=== PATIENT | female | born 1935 | race Caucasian/White ===

== ENCOUNTER 2021-05-21 08:29 | Emergency (ER) | payer MEDICARE, SELFPAY ==
--- NOTE | 2021-05-21 | ECG_ITS ---
Test Reason : chest wall pain Blood Pressure : / mmHG Vent. Rate : 065 BPM Atrial Rate : 065 BPM P-R Int : 136 ms QRS Dur : 090 ms QT Int : 400 ms P-R-T Axes : 000 -53 037 degrees QTc Int : 416 ms Sinus rhythm with Premature supraventricular complexes Left anterior fascicular block RSR' or QR pattern in V1 suggests right ventricular conduction delay Abnormal ECG No previous ECGs available Referred By: Generic ED Physician Electronically Signed By:JAMARI ALLEN MD
--- NOTE | ~2021-05-21 | CT_ITS ---
EXAMINATION: CTA CHEST CT ABDOMEN AND PELVIS WITH CONTRAST CLINICAL INFORMATION: Chest pain with SOB. Right lower quadrant pain. COMPARISON: None TECHNIQUE: 5 mm thin axial and reformatted 3 mm thin sagittal coronal images of chest were obtained following rapid IV 100 mL of Omnipaque 350. Subsequently 5 mm thin axial and 3 mm thin coronal and sagittal images of abdomen and pelvis were obtained with attention to subdiaphragmatic pleura. DLP: 977.9 mGy-cm FINDINGS: CHEST: Lungs: Both lungs are fairly well-expanded without acute pneumonic process. There is patchy bibasilar lateral posterior segment upper lobe dependent atelectasis 7 mm dependent bibasilar lower lobe atelectasis. There is a calcified right upper lobe 2 mm nodule on axial image 139/10, 1.2 cm right middle lobe nodule axial image 237/10. There is adjacent to the nodule right middle lobe axial image 30/9. Adjacent nodule in the right middle lobe There is patchy reticular nodular changes right upper lobe likely developing infiltrate. There is a punctate 2 mm calcified nodule right lower lobe superior segment 163/10 Mediastinum: There is good opacification of pulmonary artery and its branches without any intraluminal filling defect. There is mild tortuosity of pulmonary arteries questioning pulmonary venous hypertension. Heart size is normal. No mediastinal lymph nodes or mass seen. Central trachea and the bronchi are widely patent. Pleura: There is no pleural thickening, effusion or calcification. Axilla: There is no abnormal axillary lymph nodes or mass. The chest wall appears unremarkable. ABDOMEN AND PELVIS: Liver, Gallbladder and Intrahepatic Ducts: There is no focal liver lesion or intrahepatic ductal dilatation. The CBD is nondilated. No retroperitoneal or intraperitoneal mass or abnormal lymph nodes seen. Kidneys, Adrenal Glands and Bladder: There are bilateral renal cysts. No radiopaque renal calculi or hydronephrosis. Bilateral adrenal glands unremarkable. The bladder is nondistended. GI Tract. There is scattered stool, diverticuli and gas seen throughout the colon without distention. The small bowel loops are normal caliber. No free air or free fluid. No abnormal mesenteric lymph nodes seen. Lymphovascular Structures: Unremarkable abdominal aorta. IVC is widely patent. Urinary Bladder: Unremarkable. Pelvis: Unremarkable. Osseous Structures: There are bilateral hip prosthesis. No lytic or sclerotic process visualized. CT/CT angio chest PE protocol IMPRESSION: There is no evidence of PE. No aortic dissection. No consolidation or mass or lymphadenopathy. There are calcified small nodules in both lungs. In addition there is suspicious worrisome worrisome 1.2 cm nodule in the right middle lobe and adjacent subpleural 2 nodules axial image 30 Bilateral renal cysts without radiopaque calculi or hydronephrosis. Mild constipation without bowel obstruction. Few scattered sigmoid diverticula but no diverticulitis. 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
--- NOTE | ~2021-05-21 | XR_ITS ---
EXAMINATION: XR CHEST CLINICAL INFORMATION: Cough. COMPARISON: None TECHNIQUE: Frontal view of the chest was obtained. FINDINGS: The lungs are well-expanded and clear of acute pneumonic process. The heart size and pulmonary vascularity is normal. No gross bony abnormality seen. XR/XR chest 1V IMPRESSION: Unremarkable chest exam.
[2021-05-21 08:39] VITALS: BP 140/86; PULSE 80; RESP 18; TEMP 36.7; O2SAT 96; BMI 25.0
[2021-05-21 10:27] LABS: MANUAL DIFF FLAG NO
[2021-05-21 10:28] LABS: Basophils Percent Auto 0.5 % (0-2); Eosinophils Absolute Auto 0.1 X10*3/uL (0.0-0.4); Eosinophils Percent Auto 3.4 % (0-4); Hematocrit 41.3 % (37.0-47.0); Hemoglobin 13.8 g/dl (12.0-16.0); Imm Gran Abs Auto 0.01 X10*3/uL (0.00-0.03); Imm Gran Pct Auto 0.3 % (0.0-0.4); Lymphocytes Absolute Auto 0.9 X10*3/uL (1.2-4.9); Lymphocytes Percent Auto 23.1 % (20-40); Mean Corpuscular HGB Conc 33.4 g/dl (31.0-35.0); Mean Corpuscular Volume 89.8 fL (80.0-98.0); Mean Platelet Volume 9.6 fL (9.4-12.3); Monocytes Absolute Auto 0.4 X10*3/uL (0.1-1.2); Monocytes Percent Auto 11.5 % (2-11); Neutrophils Absolute Auto 2.3 x10*3/uL (2.0-8.3); Neutrophils Percent Auto 61.2 % (45-73); Platelet Count 197 X10*3/uL (160-400); White Blood Count 3.8 X10*3/uL (4.8-10.8)
[2021-05-21 10:38] LABS: D Dimer High Sensitivity 391 NG/ML
--- NOTE | 2021-05-21 10:42 | ED.URI ---
HPI - URI/Sore Throat General Chief Complaint: Upper Respiratory Symptoms Stated Complaint: COUGH PAIN ON R SIDE OF CHEST Time Seen by Provider: 05/21/21 10:04 Source: patient Mode of arrival: ambulatory History of Present Illness HPI Narrative: 86-year-old female with a past medical history of hypertension presenting to the ED complaining of dry cough, SOB, chest discomfort x a few weeks. Admits symptoms are worsening. CP/SOB worse on exertion. Reports CP worse on deep inspiration. Also reports hoarse voice/sore throat. Denies fever, chills, nausea, vomiting, diarrhea, dysuria/hematuria, pedal edema, recent travel MD elicited complaint: cough and sore throat Related Data Home Medications Medication Instructions Recorded Confirmed amitriptyline 10 mg tablet 10 mg PO BEDTIME 05/21/21 05/21/21 losartan 25 mg tablet 1 tab PO DAILY 05/21/21 05/21/21 oxybutynin chloride 5 mg 5 mg PO DAILY PRN 05/21/21 05/21/21 tablet,extended release 24 hr Previous Rx's Medication Instructions Recorded albuterol sulfate 90 mcg/actuation 2 puff INHALATION Q4-6H PRN #6.7 g 05/21/21 aerosol inhaler benzonatate 200 mg capsule 200 mg PO TID PRN #20 cap 05/21/21 fluticasone propionate 50 2 spray INTRANASAL DAILY #16 g 05/21/21 mcg/actuation nasal spray,suspension (Flonase Allergy Relief) Allergies Allergy/AdvReac Type Severity Reaction Status Date / Time No Known Allergies Allergy Verified 05/21/21 08:42 Review of Systems Review of Systems: Constitutional: No Fever, No Chills,No Fatigue, No Malaise ENT/Mouth: No Ear Pain, No Nasal Congestion, No Sinus Pain, + Hoarseness, No sore throat, No Rhinorrhea, No Swallowing Difficulty Eyes: No Eye Pain, No Swelling, No Redness, No Discharge Cardiovascular: + Chest Pain, + SOB, + Dyspnea on Exertion, No Orthopnea, No Edema, No Palpitations Respiratory: + Cough, No Sputum, No Wheezing, No Dyspnea Gastrointestinal: No Nausea, No Vomiting, No Diarrhea, No Constipation, No Abdominal pain Genitourinary:No Dysuria, No Urinary Frequency, No Hematuria,No Flank Pain Musculoskeletal: No joint pain, No Myalgias, No Joint Swelling Skin: No Skin Lesions, No rash Neuro: No Weakness, No Numbness, No Headache Yes all other systems are reviewed and are negative [facility] Past Medical History Attestation statement: The following information was validated with the patient. Medical History (Updated 05/21/21 @ 18:07 by CARLOS ALBERTO Mendiola) No known health problems Social History Social History Advance Directives: Yes Advance Directives Information Provided: Yes Advance Directives on File: No Physical Exam Vital Signs: Vital Signs: Last Vital Signs Temp 98.6 F 05/21/21 10:51 Pulse 75 05/21/21 14:12 Resp 14 05/21/21 14:12 BP 169/89 H 05/21/21 14:12 Pulse Ox 98 05/21/21 14:12 Body Mass Index 25.0 Const: General: cooperative, healthy appearing and no acute distress Orientation/consciousness: patient oriented x3 Limitations: no limitations HENMT: Head: Yes normal to inspection Ears: hearing grossly normal bilaterally General nose exam: Normal external nose present Face and sinus: Yes normal facial exam Eyes: General: appearance normal, both eyes and all related structures EOM: EOMs intact bilaterally Neck: Neck: Yes normal visual inspection and Yes no meningeal signs Chest: Chest palpation & inspection: normal inspection of the chest, no crepitus and no tenderness Resp: Effort & Inspection: normal respiratory effort Auscultation: clear to auscultation bilaterally, no rales, no rhonchi and no wheezes Cardio: Rate: regular rate Heart sounds: S1 normal heart sound present and S2 normal heart sound present GI: Inspection: Yes normal to inspection Palpation (GI): Soft to palpation, Tenderness to palpation present (GI) in the RLQ, no guarding and not rigid Skin: Rashes: no rashes Wounds: no wounds Neuro: General: patient oriented x3 and no meningeal signs Gait exam (Neuro): Normal gait present Extrem: Other: 1+ bilateral lower extremity pitting General: Yes normal to inspection and Yes no calf tenderness Course Course Course Narrative: XR chest 1V IMPRESSION: Unremarkable chest exam -1158-- Leukopenia 3.8, troponin negative, D-dimer elevated to 391 > will obtain CTA to rule out PE - labs otherwise unremarkable. UA not infected -1438--COVID-19/influenza/RSV negative CHEST /ABDOMEN AND PELVIS: IMPRESSION: There is no evidence of PE. No aortic dissection. consolidation or mass or lymphadenopathy. Bilateral renal cysts without radiopaque calculi or hydronephrosis. Mild constipation without bowel obstruction. Few scattered sigmoid diverticula but no diverticulitis. 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 On exam vital signs stable, NAD/nontoxic, lungs CTA, abdomen soft with RLQ ttp, 1+ bilateral lower extremity pitting edema. Concern for viral syndrome/COVID-19 vs bronchitis vs pneumonia vs PE. Symptoms atypical for ACS. Concern for appendicitis vs UTI or pyelo/renal stone Plan: EKG, labs, UA, COVID-19 testing, CXR, D-dimer, CT abdomen/pelvis Medical Records Attestation: I reviewed the patient's medical records. Lab Data Attestation: I reviewed the patient's lab results. Result diagrams: 05/21/21 10:21 05/21/21 10:21 Labs: Lab Results 05/21/21 05/21/21 05/21/21 Range/Units 10:20 10:20 10:21 WBC 3.8 L (4.8-10.8) X10*3/uL RBC 4.60 (4.20-5.50) X10*6/uL Hgb 13.8 (12.0-16.0) g/dl Hct 41.3 (37.0-47.0) % MCV 89.8 (80.0-98.0) fL MCH 30.0 (27.0-33.0) pg MCHC 33.4 (31.0-35.0) g/dl RDW 13.0 (11.0-16.0) % Plt Count 197 (160-400) X10*3/uL MPV 9.6 (9.4-12.3) fL Immature Gran % (Auto) 0.3 (0.0-0.4) % Neut % (Auto) 61.2 (45-73) % Lymph % (Auto) 23.1 (20-40) % [place]eson % (Auto) 11.5 H (2-11) % Eos % (Auto) 3.4 (0-4) % Baso % (Auto) 0.5 (0-2) % Lymph # (Auto) 0.9 L (1.2-4.9) X10*3/uL [place] # (Auto) 0.4 (0.1-1.2) X10*3/uL Eos # (Auto) 0.1 (0.0-0.4) X10*3/uL Baso # (Auto) 0.0 (0.0-0.2) X10*3/uL Abs Immat Gran (auto) 0.01 (0.00-0.03) X10*3/uL Absolute Neuts (auto) 2.3 (2.0-8.3) x10*3/uL Absolute Nucleated RBC 0.000 (0.0-0.012) X10*3/uL Nucleated RBC % (auto) 0.0 (0.0-0.2) /100WBC D-Dimer High Sensitivty NG/ML Sodium (135-145) mmol/L Potassium (3.3-5.1) mmol/L Chloride (96-108) mmol/L Carbon Dioxide (22-29) mmol/L Anion Gap (12-20) BUN (9-16) mg/dL Creatinine (0.5-1.4) mg/dL Estim Creat Clear Calc Estimated GFR Random Glucose (60-115) mg/dL Calcium (8.4-10.2) mg/dL Magnesium (1.6-2.6) mg/dL Total Bilirubin (0.0-1.0) mg/dL Direct Bilirubin (0.0-0.5) mg/dL AST (5-31) U/L ALT (0-31) U/L Alkaline Phosphatase (39-117) U/L Troponin I High Sens (<3.5-17.0) ng/L B-Natriuretic Peptide 20 (<100) pg/mL Total Protein (6.5-8.0) g/dL Albumin (3.5-5.0) g/dL Lipase (8-78) U/L Urine Color Urine Appearance Urine pH (5.0-8.0) Ur Specific [place] (1.005-1.025) Urine Protein (NEG-TRACE) MG/DL Urine Glucose (UA) (NEG) MG/DL Urine Ketones (NEG) MG/DL Urine Blood (NEG) Urine Nitrite (NEG) Ur Leukocyte Esterase (NEG) Urine RBC (0) /HPF Urine WBC (0-4) /HPF Ur Squamous Epith Cells /LPF Urine Bacteria Influenza Type A (PCR) NEGATIVE (Negative) Influenza Type B (PCR) NEGATIVE (Negative) RSV RNA Qual (PCR) NEGATIVE (Negative) SARS-CoV-2 RNA (RT-PCR) NEGATIVE (Negative) 05/21/21 05/21/21 05/21/21 Range/Units 10:21 10:21 10:22 WBC (4.8-10.8) X10*3/uL RBC (4.20-5.50) X10*6/uL Hgb (12.0-16.0) g/dl Hct (37.0-47.0) % MCV (80.0-98.0) fL MCH (27.0-33.0) pg MCHC (31.0-35.0) g/dl RDW (11.0-16.0) % Plt Count (160-400) X10*3/uL MPV (9.4-12.3) fL Immature Gran % (Auto) (0.0-0.4) % Neut % (Auto) (45-73) % Lymph % (Auto) (20-40) % Robeson % (Auto) (2-11) % Eos % (Auto) (0-4) % Baso % (Auto) (0-2) % Lymph # (Auto) (1.2-4.9) X10*3/uL [place] # (Auto) (0.1-1.2) X10*3/uL Eos # (Auto) (0.0-0.4) X10*3/uL Baso # (Auto) (0.0-0.2) X10*3/uL Abs Immat Gran (auto) (0.00-0.03) X10*3/uL Absolute Neuts (auto) (2.0-8.3) x10*3/uL Absolute Nucleated RBC (0.0-0.012) X10*3/uL Nucleated RBC % (auto) (0.0-0.2) /100WBC D-Dimer High Sensitivty 391 NG/ML Sodium 142 (135-145) mmol/L Potassium 4.4 (3.3-5.1) mmol/L Chloride 106 (96-108) mmol/L Carbon Dioxide 30 H (22-29) mmol/L Anion Gap 10 L (12-20) BUN 19 H (9-16) mg/dL Creatinine 1.00 (0.5-1.4) mg/dL Estim Creat Clear Calc 37.0 Estimated GFR 53 Random Glucose 94 (60-115) mg/dL Calcium 9.2 (8.4-10.2) mg/dL Magnesium 2.0 (1.6-2.6) mg/dL Total Bilirubin 0.8 (0.0-1.0) mg/dL Direct Bilirubin 0.3 (0.0-0.5) mg/dL AST 19 (5-31) U/L ALT 20 (0-31) U/L Alkaline Phosphatase 74 (39-117) U/L Troponin I High Sens < 3.5 (<3.5-17.0) ng/L B-Natriuretic Peptide (<100) pg/mL Total Protein 6.1 L (6.5-8.0) g/dL Albumin 4.0 (3.5-5.0) g/dL Lipase 23 (8-78) U/L Urine Color Urine Appearance Urine pH (5.0-8.0) Ur Specific [place] (1.005-1.025) Urine Protein (NEG-TRACE) MG/DL Urine Glucose (UA) (NEG) MG/DL Urine Ketones (NEG) MG/DL Urine Blood (NEG) Urine Nitrite (NEG) Ur Leukocyte Esterase (NEG) Urine RBC (0) /HPF Urine WBC (0-4) /HPF Ur Squamous Epith Cells /LPF Urine Bacteria Influenza Type A (PCR) (Negative) Influenza Type B (PCR) (Negative) RSV RNA Qual (PCR) (Negative) SARS-CoV-2 RNA (RT-PCR) (Negative) 05/21/21 Range/Units 11:00 WBC (4.8-10.8) X10*3/uL RBC (4.20-5.50) X10*6/uL Hgb (12.0-16.0) g/dl Hct (37.0-47.0) % MCV (80.0-98.0) fL MCH (27.0-33.0) pg MCHC (31.0-35.0) g/dl RDW (11.0-16.0) % Plt Count (160-400) X10*3/uL MPV (9.4-12.3) fL Immature Gran % (Auto) (0.0-0.4) % Neut % (Auto) (45-73) % Lymph % (Auto) (20-40) % Robeson % (Auto) (2-11) % Eos % (Auto) (0-4) % Baso % (Auto) (0-2) % Lymph # (Auto) (1.2-4.9) X10*3/uL [place] # (Auto) (0.1-1.2) X10*3/uL Eos # (Auto) (0.0-0.4) X10*3/uL Baso # (Auto) (0.0-0.2) X10*3/uL Abs Immat Gran (auto) (0.00-0.03) X10*3/uL Absolute Neuts (auto) (2.0-8.3) x10*3/uL Absolute Nucleated RBC (0.0-0.012) X10*3/uL Nucleated RBC % (auto) (0.0-0.2) /100WBC D-Dimer High Sensitivty NG/ML Sodium (135-145) mmol/L Potassium (3.3-5.1) mmol/L Chloride (96-108) mmol/L Carbon Dioxide (22-29) mmol/L Anion Gap (12-20) BUN (9-16) mg/dL Creatinine (0.5-1.4) mg/dL Estim Creat Clear Calc Estimated GFR Random Glucose (60-115) mg/dL Calcium (8.4-10.2) mg/dL Magnesium (1.6-2.6) mg/dL Total Bilirubin (0.0-1.0) mg/dL Direct Bilirubin (0.0-0.5) mg/dL AST (5-31) U/L ALT (0-31) U/L Alkaline Phosphatase (39-117) U/L Troponin I High Sens (<3.5-17.0) ng/L B-Natriuretic Peptide (<100) pg/mL Total Protein (6.5-8.0) g/dL Albumin (3.5-5.0) g/dL Lipase (8-78) U/L Urine Color YELLOW Urine Appearance CLEAR Urine pH 7.0 (5.0-8.0) Ur Specific [place] 1.010 (1.005-1.025) Urine Protein NEG (NEG-TRACE) MG/DL Urine Glucose (UA) NEG (NEG) MG/DL Urine Ketones NEG (NEG) MG/DL Urine Blood NEG (NEG) Urine Nitrite NEG (NEG) Ur Leukocyte Esterase 1+ H (NEG) Urine RBC 0 (0) /HPF Urine WBC 1-4 (0-4) /HPF Ur Squamous Epith Cells NONE /LPF Urine Bacteria Not Reportable Influenza Type A (PCR) (Negative) Influenza Type B (PCR) (Negative) RSV RNA Qual (PCR) (Negative) SARS-CoV-2 RNA (RT-PCR) (Negative) Discharge Plan Discharge Clinical Impression: Upper respiratory infection, Abdominal pain Patient Disposition: Home, Self-Care Instructions: Upper Respiratory Infection (ED), Abdominal Pain (ED) Additional Instructions: Your blood work and imaging studies were reassuring Douglas [place] is for cough Flonase is a nasal decongestant Albuterol inhaler will help open her airways, use for shortness of breath/wheezing If symptoms persist/worsen, you have constant worsening shortness of breath, chest pain, abdominal pain, nausea or vomiting please return to the ED Prescriptions: New albuterol sulfate 90 mcg/actuation HFA aerosol inhaler 2 puff inhalation Q4-6H PRN (Reason: shortness of breath or wheezing) Qty: 6.7 RF: 0 benzonatate 200 mg capsule 200 mg PO TID PRN (Reason: cough) Qty: 20 RF: 0 fluticasone propionate [Flonase Allergy Relief] 50 mcg/actuation spray,suspension 2 spray intranasal DAILY Qty: 16 RF: 0 No Action amitriptyline 10 mg Tablet 10 mg PO BEDTIME RF: 0 losartan 25 mg tablet 1 tab PO DAILY RF: 0 oxybutynin chloride 5 mg Tablet Extended Release 24hr 5 mg PO DAILY PRN (Reason: Urinary Retention) RF: 0 Referrals: Ivette Perdomo MD [Primary Care Provider] - 2 days
[2021-05-21 10:49] LABS: Alanine Aminotransferase 20 U/L (0-31); Alkaline Phosphatase 74 U/L (39-117); Anion Gap 10 (12-20); Aspartate Amino Transferase 19 U/L (5-31); Bilirubin Direct 0.3 mg/dL (0.0-0.5); Bilirubin Total 0.8 mg/dL (0.0-1.0); Blood Urea Nitrogen 19 mg/dL (9-16); Calcium 9.2 mg/dL (8.4-10.2); Carbon Dioxide 30 mmol/L (22-29); Chloride 106 mmol/L (96-108); Estimated Glomerular Filt Rate 53; Glucose Random 94 mg/dL (60-115); Potassium 4.4 mmol/L (3.3-5.1); Sodium 142 mmol/L (135-145); Total Protein 6.1 g/dL (6.5-8.0)
[2021-05-21 10:51] VITALS: BP 155/82; PULSE 67; RESP 14; TEMP 37; O2SAT 100
[2021-05-21 10:53] LABS: Troponin-I High Sensitivity < 3.5 ng/L (<3.5-17.0)
[2021-05-21 10:53] LABS: B Type Natriuretic Peptide 20 pg/mL (<100)
[2021-05-21 11:11] LABS: Lipase 23 U/L (8-78)
[2021-05-21 11:11] LABS: Appearance Urine CLEAR; Color Urine YELLOW; Glucose Urine UA NEG (NEG); Leukocyte Esterase Urine 1+ (NEG); Nitrite Urine NEG (NEG); UACC Culture Trigger YES; Urine Blood NEG (NEG); Urine Ketones NEG (NEG); Urine Protein NEG (NEG-TRACE)
[2021-05-21 11:27] LABS: Influenza A PCR NEGATIVE (Negative); Influenza B PCR NEGATIVE (Negative); Resp Syncy Virus RNA Qual PCR NEGATIVE (Negative); SARS COV2 PCR INHOUSE NEGATIVE (Negative)
[2021-05-21 11:44] LABS: RBC Urine 0 /HPF (0)
--- NOTE | 2021-05-21 12:58 | PHA.MEDREC ---
Pharmacy Consult ? Medication Reconciliation Pharmacy has completed the medication reconciliation. There are no remarkable issues for provider's attention. Karyna Chou, LetyD
[2021-05-21 13:45] VITALS: BP 169/87; PULSE 64; RESP 14; O2SAT 100
[2021-05-21 14:12] VITALS: BP 169/89; PULSE 75; RESP 14; O2SAT 98
[2021-05-21] MEDS: iohexoL 350 MG/ML 100 ML INFUS..BTL 85 ML IV (14:43)
== END 2021-05-21 18:38 | disposition home or self-care (01) ==
PROVIDERS: Physician Assistant; Emergency Provider Emergency Medicine Emergency Medical Services; PCP Family Medicine
DX: J06.9 Acute upper respiratory infection, unspecified (principal); R10.31 Right lower quadrant pain; R06.02 Shortness of breath; J02.9 Acute pharyngitis, unspecified; I10 Essential (primary) hypertension; Z20.822 Contact with and (suspected) exposure to COVID-19
CPT/HCPCS: 0241U; 36415; 71045; 71275; 74177; 80048; 80076; 81001; 83690; 83735; 83880; 84484; 85025; 85379; 87086; 93005; 99283; 99284; Q9967

== ENCOUNTER 2024-10-14 16:56 | Emergency (ER) | payer OTHER, SELFPAY ==
[2024-10-14 17:46] VITALS: BP 139/68; PULSE 70; RESP 18; TEMP 36.6; O2SAT 96; BMI 23.4
--- NOTE | 2024-10-14 17:48 | ED_ITS ---
HPI - General Adult General Chief complaint: Wound/Laceration Stated complaint: left leg wound Time Seen by Provider: 10/14/24 18:41 Source: patient Mode of arrival: ambulatory Limitations: no limitations History of Present Illness ED Provider: Ling Molina APRN HPI narrative: 89-year-old female with a history of hypertension presents to the ER with complaints of left lower leg redness and swelling for 2 weeks. Patient reports she was guarding and she has a small abrasion to her left leg from a stick. Since then she has had some increasing swelling and redness to the area. She denies fevers, chills, nausea, vomiting, weakness, numbness or tingling of the extremity. Related Data Home Medications ?Medication ?Instructions ?Recorded ?Confirmed amitriptyline 10 mg tablet 10 mg PO BEDTIME 05/21/21 05/21/21 losartan 25 mg tablet 1 tab PO DAILY 05/21/21 05/21/21 oxybutynin chloride 5 mg 5 mg PO DAILY PRN Urinary Retention 05/21/21 05/21/21 tablet,extended release 24 hr Previous Rx's ?Medication ?Instructions ?Recorded albuterol sulfate 90 mcg/actuation 2 puff inhalation Q4-6H PRN 05/21/21 aerosol inhaler shortness of breath or wheezing #6.7 grams benzonatate 200 mg capsule 200 mg PO TID PRN cough #20 caps 05/21/21 fluticasone propionate 50 2 spray intranasal DAILY #16 grams 05/21/21 mcg/actuation nasal spray,suspension (Flonase Allergy Relief) cephalexin 500 mg capsule 500 mg PO BID #14 caps 10/14/24 Allergies Allergy/AdvReac Type Severity Reaction Status Date / Time No Known Allergies Allergy Verified 10/14/24 17:50 Review of Systems 2 Review of Systems: Yes all other systems are reviewed and are negative Constitutional: Constitutional: Reports no additional constitutional complaints, Denies body ache(s), Denies chills, Denies fever(s), Denies headache(s) and Denies weakness Eyes: Eyes: Reports no additional eye complaints and Denies change in vision ENT: Reports system reviewed and no additional complaints, except as documented, Denies dizziness, Denies headache(s), Denies nasal congestion, Denies nasal discharge and Denies neck pain Cardiovascular: Cardiovascular: Reports no additional cardiovascular complaints, Denies chest pain, Denies leg edema and Denies dyspnea Respiratory: Respiratory: Reports no additional respiratory complaints, Denies cough and Denies dyspnea Gastrointestinal: Gastrointestinal: Reports no additional gastrointestinal complaints, Denies abdominal pain, Denies diarrhea, Denies nausea and Denies vomiting Genitourinary: Genitourinary: Reports no additional female genitourinary complaints and Denies urinary incontinence Musculoskeletal: Musculoskeletal: Reports no additional musculoskeletal complaints, Denies back pain, Denies arthralgias, Denies joint swelling, Denies neck pain, Denies numbness and Denies tingling Integumentary/Breasts: Skin/Breast: Reports system reviewed and no additional complaints, except as docu, Reports swelling, Reports erythema, Denies rash and Reports wounds Neurologic: Reports system reviewed and no additional complaints, except as documented, Denies Abnormal speech present, Denies dizziness, Denies headache(s), Denies numbness, Denies tingling and Denies weakness PMFSH Past Medical History Attestation statement: The following information was validated with the patient. Source: old records reviewed and nursing notes reviewed Medical History No known health problems Social History Social History Advance Directives: No Advance Directives Information Provided: Yes Do you have a plan to hurt others: No Plan Physical Exam ED Vital Signs: Vital Signs - 24 hr 10/14/24 17:46 10/14/24 18:22 10/14/24 19:33 Temperature 97.8 F 96.9 F 96.9 F Pulse Rate 70 57 57 Respiratory Rate 18 20 20 Blood Pressure 139/68 174/80 H 174/80 H Pulse Oximetry 96 98 98 Oxygen Delivery Method Room Air Room Air Room Air BMI result Body Mass Index 23.4 Const General: cooperative, healthy appearing, comfortable and no acute distress Orientation/consciousness: patient oriented x3 Limitations: no limitations HENMT Head: Yes normal to inspection Ears: hearing grossly normal bilaterally General nose exam: Normal external nose present Face and sinus: Yes normal facial exam Mouth: Normal oral and palatal mucosa present Throat: Yes posterior oropharynx normal Eyes General: appearance normal, both eyes and all related structures Pupils: Equal, round and reactive pupils present Neck Neck: Yes normal visual inspection Chest Chest palpation & inspection: normal inspection of the chest Resp Effort & Inspection: normal respiratory effort Auscultation: clear to auscultation bilaterally Cardio Rate: regular rate Rhythm: regular rhythm Peripheral pulses: Peripheral pulses 2+ throughout GI Inspection: Yes normal to inspection Palpation (GI): Soft to palpation and nontender Auscultation: normal bowel sounds Back/Spine/Pelvis Thoracic/Lumbar Spine: thoracic and lumbar spine normal to inspection Skin Other: This area is not circumferential. It is soft and compressible. There is no palpable abscess into the skin. There is full active and passive range of motion of the proximal and distal joints. There are 2+ DP and PT pulses. General skin exam: no rashes or lesions noted Neuro General: patient oriented x3, no focal motor deficits and normal sensation to monofilament Cranial nerves: Yes Equal, round and reactive pupils present Cognition (Neuro): normal cognition Speech: No Abnormal speech present Gait exam (Neuro): Normal gait present Motor exam (neuro): 5/5 motor strength present throughout Extrem General: Yes normal to inspection Course Course Course Narrative: This is a rapid medical exam performed by Carlos Garcia NP: Additional HPI, ROS, PE not included below will be deferred to primary provider. Patient is an 89-year-old female presenting with left lower leg wound x 2 weeks. Cut on sticks in the garden. Denies concern for FB. Drainging bloody/purulent fluid. Denies fevers. Plan: labs Medications Administered Discontinued Medications Generic Name Dose Route Start Last Admin Trade Name Freq PRN Reason Stop Dose Admin Bacitracin 1 appl 10/14/24 19:01 10/14/24 19:29 Bacitracin Oint 0.9 Gm Packet TOPICAL 10/14/24 19:02 1 appl ONCE ONE Administration Protocol Medical Decision Making Medical Decision Making MDM Narrative: 89-year-old female with a history of hypertension presents to the ER with complaints of left lower leg redness and swelling for 2 weeks. Patient reports she was guarding and she has a small abrasion to her left leg from a stick. Since then she has had some increasing swelling and redness to the area. She denies fevers, chills, nausea, vomiting, weakness, numbness or tingling of the extremity. This area to the LLE is not circumferential. It is soft and compressible. There is no palpable abscess into the skin. There is full active and passive range of motion of the proximal and distal joints. There are 2+ DP and PT pulses. C/w with mild wound infection. Will initiate oral antibiotics, recommend wound care at home which was discussed with patient. Differential Diagnosis Differential Diagnoses: The differential diagnosis associated with the presentation includes Cellulitis, wound infection Low suspicion for necrotizing fasciitis, compartment syndrome, deeper space abscess, osteomyelitis Admission/Observation Consideration of admission/observation: Escalation of care including admission/observation considered Lab Data [facility] Lab Attestation statement: I reviewed the patient's lab results. 10/14/24 18:32 10/14/24 18:32 Labs: Lab Results 10/14/24 Range/Units 18:32 WBC 5.2 (4.8-10.8) X10*3/uL RBC 4.30 (4.20-5.50) X10*6/uL Hgb 13.1 (12.0-16.0) g/dl Hct 38.7 (37.0-47.0) % MCV 90.0 (80.0-98.0) fL MCH 30.5 (27.0-33.0) pg MCHC 33.9 (31.0-35.0) g/dl RDW 13.5 (11.0-16.0) % Plt Count 189 (160-400) X10*3/uL MPV 10.3 (9.4-12.3) fL Immature Gran % (Auto) 0.4 (0.0-0.4) % Neut % (Auto) 63.8 (45-73) % Lymph % (Auto) 24.6 (20-40) % [place] % (Auto) 8.5 (2-11) % Eos % (Auto) 2.3 (0-4) % Baso % (Auto) 0.4 (0-2) % Lymph # (Auto) 1.3 (1.2-4.9) X10*3/uL [place] # (Auto) 0.4 (0.1-1.2) X10*3/uL Eos # (Auto) 0.1 (0.0-0.4) X10*3/uL Baso # (Auto) 0.0 (0.0-0.2) X10*3/uL Abs Immat Gran (auto) 0.02 (0.00-0.03) X10*3/uL Absolute Neuts (auto) 3.3 (2.0-8.3) x10*3/uL Absolute Nucleated RBC 0.000 (0.0-0.012) X10*3/uL Nucleated RBC % (auto) 0.0 (0.0-0.2) /100WBC ESR 12 (0-20) MM/HR Sodium 143 (135-145) mmol/L Potassium 4.2 (3.3-5.1) mmol/L Chloride 109 H (96-108) mmol/L Carbon Dioxide 25 (22-29) mmol/L Anion Gap 13 (12-20) BUN 28 H (9-16) mg/dL Creatinine 0.96 (0.5-1.4) mg/dL Estim Creat Clear Calc 37.9 Estimated GFR 55 Random Glucose 94 (60-115) mg/dL Calcium 9.0 (8.4-10.2) mg/dL Total Bilirubin 0.4 (0.0-1.0) mg/dL AST 24 (5-31) U/L ALT 17 (0-31) U/L Alkaline Phosphatase 58 (39-117) U/L C-Reactive Protein 0.24 (< or = 0.50) mg/dL Total Protein 6.1 L (6.5-8.0) g/dL Albumin 3.6 (3.5-5.0) g/dL Prescription Management I considered prescription management with: Antibiotic Discharge Plan Discharge Clinical Impression: Wound infection Patient Disposition: Home, Self-Care Instructions: Wound Infection (ED) Additional Instructions: Apply a antibiotic ointment daily with a non-stick dressing and a wrap Return for increasing redness, swelling or pain Prescriptions: New cephalexin 500 mg capsule 500 mg PO BID Qty: 14 0RF No Action amitriptyline 10 mg Tablet 10 mg PO BEDTIME losartan 25 mg tablet 1 tab PO DAILY oxybutynin chloride 5 mg Tablet Extended Release 24hr 5 mg PO DAILY PRN (Reason: Urinary Retention) albuterol sulfate 90 mcg/actuation HFA aerosol inhaler 2 puff inhalation Q4-6H PRN (Reason: shortness of breath or wheezing) Qty: 6.7 0RF benzonatate 200 mg capsule 200 mg PO TID PRN (Reason: cough) Qty: 20 0RF fluticasone propionate [Flonase Allergy Relief] 50 mcg/actuation spray,suspension 2 spray intranasal DAILY Qty: 16 0RF Rx Instructions: administer into each nostril Referrals: Ivette Perdomo MD [Primary Care Provider] - 1 week Interventions: ED Discharge Assessment Last Done: 10/14/24 19:33 Discharge Date/Time: 10/14/24 19:33 Print Language: Lao
[2024-10-14 18:22] VITALS: BP 174/80; PULSE 57; RESP 20; TEMP 36.1; O2SAT 98
[2024-10-14 18:42] LABS: MANUAL DIFF FLAG NO
[2024-10-14 19:06] LABS: Alanine Aminotransferase 17 U/L (0-31); Albumin Level 3.6 g/dL (3.5-5.0); Alkaline Phosphatase 58 U/L (39-117); Anion Gap 13 (12-20); Aspartate Amino Transferase 24 U/L (5-31); Bilirubin Total 0.4 mg/dL (0.0-1.0); Blood Urea Nitrogen 28 mg/dL (9-16); C Reactive Protein 0.24 mg/dL (< or = 0.50); Carbon Dioxide 25 mmol/L (22-29); Chloride 109 mmol/L (96-108); Creatinine Clr Calc Pharmacy 37.9; Estimated Glomerular Filt Rate 55; Glucose Random 94 mg/dL (60-115); Potassium 4.2 mmol/L (3.3-5.1); Sodium 143 mmol/L (135-145); Total Protein 6.1 g/dL (6.5-8.0)
[2024-10-14 19:19] LABS: Basophils Percent Auto 0.4 % (0-2); Eosinophils Absolute Auto 0.1 X10*3/uL (0.0-0.4); Eosinophils Percent Auto 2.3 % (0-4); Hematocrit 38.7 % (37.0-47.0); Hemoglobin 13.1 g/dl (12.0-16.0); Imm Gran Abs Auto 0.02 X10*3/uL (0.00-0.03); Imm Gran Pct Auto 0.4 % (0.0-0.4); Lymphocytes Absolute Auto 1.3 X10*3/uL (1.2-4.9); Lymphocytes Percent Auto 24.6 % (20-40); Mean Corpuscular HGB Conc 33.9 g/dl (31.0-35.0); Mean Corpuscular Hemoglobin 30.5 pg (27.0-33.0); Mean Platelet Volume 10.3 fL (9.4-12.3); Monocytes Absolute Auto 0.4 X10*3/uL (0.1-1.2); Monocytes Percent Auto 8.5 % (2-11); Neutrophils Absolute Auto 3.3 x10*3/uL (2.0-8.3); Neutrophils Percent Auto 63.8 % (45-73); Platelet Count 189 X10*3/uL (160-400); Red Cell Distribution Width 13.5 % (11.0-16.0); White Blood Count 5.2 X10*3/uL (4.8-10.8)
[2024-10-14 19:22] LABS: Erythrocyte Sedimentation Rate 12 MM/HR (0-20)
[2024-10-14] MEDS: Bacitracin Oint 0.9 GM PACKET 1 APPL TOPICAL (19:29)
[2024-10-14 19:33] VITALS: BP 174/80; PULSE 57; RESP 20; TEMP 36.1; O2SAT 98
== END 2024-10-14 19:33 | disposition home or self-care (01) ==
PROVIDERS: Registered Nurse Emergency; Emergency Provider Emergency Medicine Emergency Medical Services; PCP Family Medicine
DX: L08.9 Local infection of the skin and subcutaneous tissue, unspecified (principal); R60.9 Edema, unspecified; I10 Essential (primary) hypertension
CPT/HCPCS: 36415; 80053; 85025; 85652; 86140; 99283